=== PATIENT | male | born 1945 | race Caucasian/White ===

== ENCOUNTER 2017-10-11 10:00 | Outpatient (CLI) | payer MEDICARE ==
--- NOTE | 2017-10-11 11:01 | Diagnostic Imaging Report ---
Indication: Cough Technique: 2 views of the chest Comparison: None Findings: Lungs and pleural spaces are clear. The heart size is normal. There are mild degenerative proliferative changes of the thoracic spine. No significant interim change. Impression: Negative
== END 2017-10-11 12:00 | disposition home or self-care (01) ==
LOC: RAD 10:00
DX: R05 Cough (principal)
CPT/HCPCS: 71046